=== PATIENT | male | born 1940 | race Caucasian/White ===

== ENCOUNTER 2016-11-07 00:01 | Outpatient (POV) | END 2016-11-07 00:02 | LOC: OUTPT 00:01 | PROVIDERS: ATTEND Otolaryngology | DX: H91.90 Unspecified hearing loss, unspecified ear (principal) | CPT/HCPCS: 92557; 92567 ==

== ENCOUNTER 2017-04-12 13:15 | Emergency (ER) ==
[2017-04-12 13:28] VITALS: BP 177/74; TEMP 98.1; BMI 39.1
--- NOTE | 2017-04-12 13:31 | ED.PDOC ---
General ED Provider: Dr. PHILIPPE UNDERWOOD Chief Complaint: Foreign Body in Ear Stated Complaint: Fulless L ear Time Seen by Physician: 13:30 Mode of Arrival: Walk-In Information Source: Patient Exam Limitations: No limitations Primary Care Provider: DORA DORSEY Nursing and Triage Documentation Reviewed and Agree: Yes Review of Systems - Review Of Systems Constitutional: Reports: No symptoms Ears, Nose, Mouth, Throat: Reports: Ear pain (Right) Respiratory: Reports: No symptoms All Other Systems: Reviewed and Negative Past Medical History - Past Medical History Previously Healthy: Yes Endocrine: Reports: DM 2 Cardiovascular: Reports: Other (Cardiac Ablation) Respiratory: Reports: None Hematological: Reports: None Gastrointestinal: Reports: None Genitourinary: Reports: CKD (Hx acute kidney failure) Neuro/Psych: Reports: None Musculoskeletal: Reports: None Cancer: Reports: None - Surgical History General Surgical History: Reports: Other (Cardiac ablation) - Family History Family History: Reports: None - Social History Smoking Status: Never smoker Hx Substance Use: No Alcohol Screening: None - Immunizations Tetanus Shot up to Date: Yes Physical Exam - Physical Exam Appearance: Well-appearing ENT: Ears normal (Left WNL; R with Bluish TM discoloration) Neck: Supple Respiratory: Airway patent, Respirations nonlabored Skin: Warm, Dry, Normal color Neurological: Sensation intact, Alert, Oriented Psychiatric: Affect appropriate, Mood appropriate Critical Care Note - Critical Care Note Total Time (mins): 7 Course - Course Vital Signs: Temp Pulse Resp BP Pulse Ox 04/12/17 13:16 98.1 F 65 18 177/74 H 96 Departure - Departure Time of Disposition: 14:37 Disposition: HOME SELF-CARE Discharge Problem: Otalgia of right ear Instructions: Earache (ED) Condition: Good Pt referred to PMD for follow-up: Yes (Call for appointment) Additional Instructions: Use ear drops as prescribed; follow up with Dr. Elias next week. Call for appointment; stop ear drops 2 days before ENT visit. Prescriptions: Ciprofloxacin/Hydrocortisone [Cipro Hc Otic Suspension] 10 ml OT BID #1 drops.susp Allergies/Adverse Reactions: Allergies lisinopril Allergy (Unverified 04/12/17 13:23) causes excessive coughing. Home Medications: Ambulatory Orders Apixaban [Eliquis] 5 mg PO 1 bid 05/31/16 Dermazink 120 ml to area qd 05/31/16 Desonide Lotion BID 05/31/16 Furosemide [Lasix] 80 mg PO 1 in am/1/2 inpm 05/31/16 Insulin Regular, Human [Humulin R] 40 - 50 IJ TID vial 05/31/16 Lantis 110 un ev am 05/31/16 Omeprazole 20 mg PO 1 bid 05/31/16 Silodosin [Rapaflo] 8 mg PO 1 hs 05/31/16 Volsol 3 drop BC BID #1 aletha 05/31/16 Ciprofloxacin/Hydrocortisone [Cipro Hc Otic Suspension] 10 ml OT BID #1 drops.susp 04/12/17 Disposition Discussed With: Patient
== END 2017-04-12 14:46 | disposition home or self-care (01) ==
LOC: ED 13:15
DX: H92.01 Otalgia, right ear (principal)
CPT/HCPCS: 99282

== ENCOUNTER 2018-10-15 10:04 | Outpatient (POV) | END 2018-10-15 17:00 | LOC: OUTPT 10:04 | PROVIDERS: ATTEND Otolaryngology | DX: H90.5 Unspecified sensorineural hearing loss (principal) | CPT/HCPCS: 92557 ==